=== PATIENT | female | born 1970 | race Caucasian/White ===

== ENCOUNTER → 2023-10-12 06:26 | Day surgery (SDC) | payer BC, SELFPAY ==
[2023-10-12 07:37] LABS: Glucose - Point of Care 100 mg/dl (70-99)
== END ==
LOC: GI 06:26
PROVIDERS: ATTENDING PHYSICIAN Internal Medicine
DX: Z12.11 Encounter for screening for malignant neoplasm of colon (principal); D12.4 Benign neoplasm of descending colon; D12.5 Benign neoplasm of sigmoid colon
CPT/HCPCS: 45385; 88305; 82962

== ENCOUNTER 2025-01-16 06:22 | Day surgery (SDC) | payer BC, SELFPAY ==
[2025-01-16 07:52] LABS: Glucose - Point of Care 113 mg/dl (70-99)
== END 2025-01-16 09:55 | disposition home or self-care (01) ==
LOC: GI 06:22
PROVIDERS: ATTENDING PHYSICIAN Internal Medicine
DX: K29.70 Gastritis, unspecified, without bleeding (principal); K21.00 Gastro-esophageal reflux disease with esophagitis, without bleeding; K44.9 Diaphragmatic hernia without obstruction or gangrene
CPT/HCPCS: 43239; 82962; 88305; 88342